=== PATIENT | female | born 1985 | race Caucasian/White ===

== ENCOUNTER 2017-03-14 10:38 | Day surgery (SDC) | payer SELFPAY, BC ==
[~2017-03-14 10:38] MED LIST: Bupivacaine 0.25% 10 ML SDV INJECT ONE; Lactated Ringers 1,000 ML IV SCH
--- NOTE | 2017-03-14 11:32 | PCM.PREANE ---
Preanesthetic Assessment - Anesthesia/Transfusion/Family Hx Anesthesia History: Prior Anesthesia Without Reaction Family History of Anesthesia Reaction: No Transfusion History: No Prior Transfusion(s) - Review of Systems General: No Symptoms Pulmonary: No Symptoms Cardiovascular: No Symptoms Gastrointestinal: No Symptoms Neurological: No Symptoms Other: Reports: None - Physical Assessment NPO Status Date: 03/13/17 Height: 1.55 m Weight: 68.039 kg ASA Class: 2 Mental Status: Alert & Oriented x3 Airway Class: Mallampati = 2 Dentition: Reports: Normal Dentition ROM/Head Extension: Full Lungs: Clear to Auscultation, Normal Respiratory Effort Cardiovascular: Regular Rate, Regular Rhythm - Allergies Allergies/Adverse Reactions: Allergies Allergy/AdvReac Type Severity Reaction Status Date / Time clindamycin Allergy Rash Verified 07/28/15 01:52 Penicillins Allergy Rash Verified 07/28/15 01:53 Sulfa (Sulfonamide Allergy Rash Verified 07/28/15 01:52 Antibiotics) - Acknowledgements Anesthesia Type Planned: General Anesthesia Pt an Appropriate Candidate for the Planned Anesthesia: Yes Alternatives and Risks of Anesthesia Discussed w Pt/Guardian: Yes Pt/Guardian Understands and Agrees with Anesthesia Plan: Yes PreAnesthesia Questionnaire Respiratory History: Reports: Asthma Genitourinary History: Reports: None [employer]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: Neurological History: Reports: Migraines Psychiatric History: Reports: Anxiety, Depression - Past Surgical History Head Surgeries/Procedures: Reports: None Female Surgical History: Reports: Tubal Ligation Musculoskeletal Surgical History: Reports: Other (See Below) Other Musculoskeletal Surgeries/Procedures:: metatarsal osteotomy of 1st metatarsal rt foot - SUBSTANCE USE Smoking Status *Q: Never Smoker Tobacco Use Within Last Twelve Months: No Second Hand Smoke Exposure: No Recreational Drug Use History: No - HOME MEDS Home Medications: Home Meds Albuterol Sulfate [Proair Hfa] 2 puff INH ASDIRECTED PRN 03/09/17 [History] Citalopram Hydrobromide [Celexa] 40 mg PO DAILY 03/09/17 [History] Rizatriptan Benzoate [Rizatriptan] 10 mg PO ASDIRECTED PRN 03/09/17 [History] cloNIDine HCl [Clonidine HCl ER] 0.1 mg PO BEDTIME 03/09/17 [History] - CURRENT (IN HOUSE) MEDS Current Meds: Current Medications Hydrocodone Bitart/Acetaminophen ([place] 325-5 Mg) 1 tab PO Q4H PRN PRN Reason: Pain Lactated Ringer's (Ringers, Lactated) 1,000 mls @ 125 mls/hr IV ASDIRECTED ELAINE Vancomycin HCl 0.75 gm/ Sodium (Chloride) 250 mls @ 166 mls/hr IV ONETIME ONE Stop: 03/14/17 12:30 Discontinued Medications Bupivacaine HCl (Sensorcaine-Mpf 0.25%) 20 ml INJECT ONETIME ONE Stop: 03/14/17 09:01
[2017-03-14] MEDS ORDERED: Succinylcholine/Normal Saline 200 MG/10 ML Syringe ONE (11:41)
[2017-03-14] MEDS ORDERED: Midazolam 1 MG/ML 2 ML SDV ONE (11:41)
[2017-03-14] MEDS ORDERED: Ondansetron 4 MG/2 ML SDV ONE (11:41)
[2017-03-14] MEDS ORDERED: Propofol 200 MG/20 ML SDV ONE (11:41)
[2017-03-14] MEDS ORDERED: diphenhydrAMINE 50 MG/ML SDV ONE (11:41)
[2017-03-14] MEDS ORDERED: Dexamethasone 4 MG/ML 5 ML MDV ONE (11:41)
[2017-03-14] MEDS ORDERED: Rocuronium 10 MG/ML 10 ML Syringe ONE (11:41)
[2017-03-14] MEDS ORDERED: HYDROmorphone 2 MG/ML Syringe ONE (11:41)
[2017-03-14] MEDS ORDERED: fentaNYL 250 MCG/5 ML SDV ONE (11:42)
[2017-03-14] MEDS ORDERED: Bupivacaine 0.25% 10 ML SDV ONE ×2 (12:48→14:38)
[2017-03-14] MEDS ORDERED: Mineral Oil/Petrolatum Ophth Oint 3.5 GM Tube ONE (12:57)
[2017-03-14] MEDS ORDERED: ePHEDrine 50 MG/ML SDV ONE (14:32)
[2017-03-14] MEDS ORDERED: Meperidine PF 25 MG/ML Syringe ONE (15:46)
[2017-03-14] MEDS ORDERED: Meperidine PF 25 MG/ML Syringe IVPUSH ONE (15:48)
[2017-03-14] MEDS ORDERED: fentaNYL 100 MCG/2 ML SDV IVPUSH PRN (15:49)
--- NOTE | 2017-03-14 15:50 | PCM.POSTAN ---
POST ANESTHESIA ASSESSMENT - MENTAL STATUS Mental Status: Alert, Oriented - RESPIRATORY Respiratory Status: Respiratory Rate WNL, Airway Patent, O2 Saturation Stable - CARDIOVASCULAR CV Status: Pulse Rate WNL, Blood Pressure Stable - GASTROINTESTINAL GI Status: No Symptoms - PAIN Pain Score: 2 - POST OP HYDRATION Hydration Status: Adequate & Stable
[2017-03-14 16:57] VITALS: BP 127/78
--- NOTE | 2017-03-14 17:17 | PCM48HPAN ---
Post Anesthesia Note - EVALUATION WITHIN 48HRS OF ANESTHETIC Vital Signs in Normal Range: Yes Patient Participated in Evaluation: Yes Respiratory Function Stable: Yes Airway Patent: Yes Cardiovascular Function Stable: Yes Hydration Status Stable: Yes Pain Control Satisfactory: Yes Nausea and Vomiting Control Satisfactory: Yes Mental Status Recovered: Yes
--- NOTE | 2017-03-14 21:23 | PCM.OPNOTE ---
- General Post-Op/Procedure Note Date of Surgery/Procedure: 03/14/17 Operative Procedure(s): bilateral breast lift (mastopexy) Pre Op Diagnosis: cosmetic Post-Op Diagnosis: Same Anesthesia Technique: General ET Tube, Local Primary Surgeon: Karen Dalton Roll Filler: Marina Estevez Role of Roll Filler: retraction and closure assistance Complications: None Condition: Good Free Text/Narrative:: Intake & Output 03/14/17 03/14/17 03/14/17 07:59 15:59 23:59 Intake Total 2100 Balance 2100
[2017-03-16] MEDS ORDERED: Acetaminophen/HYDROcodone 325-5 MG Tab PO PRN (09:00)
--- NOTE | 2017-03-19 15:29 | OR ---
SURGEON: ELMIRA CARROLL MD DATE OF PROCEDURE: 03/14/2017 PREOPERATIVE DIAGNOSIS: Cosmetic. POSTOPERATIVE DIAGNOSIS: Cosmetic. PROCEDURE: Bilateral mastopexy/breast lift. FOREST FIRE LOOKOUT: WINSTON Mayorga. Role of personal assistant is retraction and closure assistance. ANESTHESIA: General ET tube with local. INDICATIONS: Ms. Hair is a 31-year-old female seen today in evaluation for bilateral breast lift. Risks and benefits of cosmetic surgery were discussed with her and she was in agreement to proceed. Risks were including, but not limited to, bleeding, infection, damage to underlying or overlying structures, possible need for future interventions, possible scarring. PROCEDURE IN DETAIL: After informed consent was obtained and placed on the chart, the patient was brought to the operating theater and laid in supine position. After adequate local MAC anesthetic was obtained, the area was prepped and draped, and a time- out was completed to confirm side and site. Once adequately confirmed, attention was then paid to infiltration of local anesthesia and marking for the breast lift. Once markings were adequately confirmed, they were stapled and tacked in place. The patient was sat up in the supine position to ensure appropriate symmetry and positioning. Once adequately confirmed, the patient was laid back down and the superomedial pedicle was de- epithelialized, taking care to protect the nipple-areolar complex and the remaining skin intervening tissue was removed. Slightly more was removed on the right than on the left to improve the patient's symmetry. The nipple-areolar complex was tacked into its new position using sammi and the lower skin incision closed appropriately. The patient was then sat up and again symmetry was appreciated with a small T-incision on the bottom of each breast. Once this was completed, the patient was laid back down into the supine position and the skin was closed with deep 3-0 Stratafix suture and a running 4- 0 subcuticular for the skin. The patient tolerated this well. The wounds were dressed with Steri-Strips, fluffs, and a Kerlix gauze dressing and a compression bra. FOLLOWUP INSTRUCTIONS: The patient will see us tomorrow in clinic, sooner if any problems, questions, or concerns. She was given a prescription for pain control. HEGGTLISSETH / KEN /[id number]
== END 2017-03-14 16:55 | disposition home or self-care (01) ==
LOC: MW.SDS 10:38
PROVIDERS: ATTEND Plastic Surgery
DX: Z41.1 Encounter for cosmetic surgery (principal); F41.9 Anxiety disorder, unspecified; Z88.0 Allergy status to penicillin; Z88.1 Allergy status to other antibiotic agents; Z88.2 Allergy status to sulfonamides; Z79.899 Other long term (current) drug therapy; Z98.51 Tubal ligation status; Z78.9 Other specified health status
CPT/HCPCS: 19316; 81025; J1100; J1170; J1200; J2175; J2250; J2405; J3010; 00402; J2704

== ENCOUNTER 2017-12-21 11:30 | Emergency (ER) | payer BC ==
--- NOTE | 2017-12-21 12:08 | CR ---
EXAMINATION: Right ankle HISTORY: Pain COMPARISON: None TECHNIQUE: 3 views FINDINGS/IMPRESSION: There is a small minimally displaced avulsion fracture at the tip of the distal fibula with prominent overlying soft tissue swelling. The remaining osseous structures and joint spac es appear preserved. Bone mineralization is otherwise normal.
[2017-12-21 12:23] VITALS: BP 130/83
--- NOTE | 2017-12-21 12:29 | EDM.PDOC ---
ED HPI GENERAL MEDICAL PROBLEM - General Chief Complaint: Lower Extremity Injury/Pain Stated Complaint: RT ANKLE HURTS Time Seen by Provider: 12/21/17 11:33 Source of Information: Reports: Patient History Limitations: Reports: No Limitations - History of Present Illness INITIAL COMMENTS - FREE TEXT/NARRATIVE: HISTORY AND PHYSICAL: History of present illness: Patient was stepping off a gym machine when she heard a pop to her right ankle. Immediately had some soft tissue swelling and pain which is increased with weightbearing. She denies any fever, chills, chest pain, shortness of breath or cough. Denies any GI or symptoms. She did have a previous bunion surgery to the affected extremity. Review of systems: As per history of present illness and below otherwise all systems reviewed and negative. Past medical history: As per history of present illness and as reviewed below otherwise noncontributory. Surgical history: As per history of present illness and as reviewed below otherwise noncontributory. Social history: No reported history of drug or alcohol abuse. Family history: As per history of present illness and as reviewed below otherwise noncontributory. Physical exam: General: Developed and well-nourished 32-year-old female. Alert and oriented. Nontoxic appearing and in no acute distress. HEENT: Atraumatic, normocephalic, pupils equal and reactive bilaterally, negative for conjunctival pallor or scleral icterus, mucous membranes moist, throat clear, neck supple, nontender, trachea midline. No drooling or trismus noted. No meningeal signs Lungs: Clear to auscultation, breath sounds equal bilaterally, chest nontender. Heart: S1S2, regular rate and rhythm without overt murmur Abdomen: Soft, nondistended, nontender. Negative for masses or hepatosplenomegaly. Negative for costovertebral tenderness. Pelvis: Stable nontender. Genitourinary: Deferred. Rectal: Deferred. Skin: Soft tissue swelling noted to the right lateral malleolus. Otherwise skin is I\ntact, warm, dry. No lesions or rashes noted. Extremities: Moves all per self, does have pain with palpation over the lateral malleolus, right. Soft tissue swelling noted. She is negative for cords or calf pain. Neurovascular unremarkable. Neuro: Awake, alert, oriented. Cranial nerves II through XII unremarkable. Cerebellum unremarkable. Motor and sensory unremarkable throughout. Exam nonfocal. Notes: X-ray shows a small minimally displaced avulsion fracture at the tip of the distal fibula with prominent overlying soft tissue swelling. This information was shared with the patient. Dr Madden was consulted on this case, will follow up with patient as outpatient next week and is agreeable to plan of care. Half cast fiberglass splint was applied by nursing staff. Crutches education completed. We discussed appropriate follow-up care. She voices understanding and is agreeable to plan of care. Denies any further questions or concerns at this time. Diagnostics: Xray right ankle Therapeutics: 1/ cast fiberglass splint with crutches Prescription: Tramadol #15 Impression: Distal Fibula Fracture, Right Plan: 1. Rest, ice, elevate the affected extremity. Wear the splint and use crutches as directed. 2. Tylenol and/or ibuprofen as needed for pain management. Tramadol for moderate to severe pain. This medication may cause drowsiness so do not take while driving or needing to be functioning outside of the house. 3. Please follow-up with the orthopedic provider next week. Return to the ED as needed as discussed. Definitive disposition and diagnosis as appropriate pending reevaluation and review of above. Onset: Today Duration: Hour(s): Location: Reports: Lower Extremity, Right Right Ankle Pain Score (Numeric/FACES): 10 - Related Data Allergies Allergy/AdvReac Type Severity Reaction Status Date / Time clindamycin Allergy Rash Verified 12/21/17 12:23 Penicillins Allergy Rash Verified 12/21/17 12:23 Sulfa (Sulfonamide Allergy Rash Verified 12/21/17 12:23 Antibiotics) Home Meds: Home Meds Albuterol Sulfate [Proair Hfa] 2 puff INH ASDIRECTED PRN 03/09/17 [History] Citalopram Hydrobromide [Celexa] 40 mg PO DAILY 03/09/17 [History] traMADol [Ultram] 50 mg PO Q4H PRN #15 tab 12/21/17 [Rx] Past Medical History Respiratory History: Reports: Asthma Genitourinary History: Reports: None [employer] History: Reports: Neurological History: Reports: Migraines Psychiatric History: Reports: Anxiety - Past Surgical History Other Musculoskeletal Surgeries/Procedures:: foot surgery Review of Systems - Review of Systems Review Of Systems: ROS reveals no pertinent complaints other than HPI. ED EXAM, GENERAL - Physical Exam Exam: See Below (See dictation) Course - Vital Signs Last Recorded V/S: Last Vital Signs Temp 98.3 F 12/21/17 12:19 Pulse 86 12/21/17 12:19 Resp 16 12/21/17 12:19 BP 130/83 12/21/17 12:19 Pulse Ox 98 12/21/17 12:19 - Orders/Labs/Meds Orders: Active Orders 24 hr Category Date Time Status DME for Discharge [COMM] Stat Oth 12/21/17 12:31 Ordered Departure - Departure Time of Disposition: 12:29 Disposition: Home, Self-Care 01 Clinical Impression: Fibula fracture Qualifiers: Encounter type: initial encounter Fibula location: distal Fracture type: closed Fracture morphology: other fracture Laterality: right Qualified Code(s): S82.831A - Other fracture of upper and lower end of right fibula, initial encounter for closed fracture - Discharge Information Prescriptions: traMADol [Ultram] 50 mg PO Q4H PRN #15 tab PRN Reason: Pain Referrals: PCP,None [Primary Care Provider] - Forms: ED Department Discharge Additional Instructions: The following information is given to patients seen in the emergency department who are being discharged to home. This information is to outline your options for follow-up care. We provide all patients seen in our emergency department with a follow-up referral. The need for follow-up, as well as the timing and circumstances, are variable depending upon the specifics of your emergency department visit. If you don't have a primary care physician on staff, we will provide you with a referral. We always advise you to contact your personal physician following an emergency department visit to inform them of the circumstance of the visit and for follow-up with them and/or the need for any referrals to a consulting specialist. The emergency department will also refer you to a specialist when appropriate. This referral assures that you have the opportunity for follow-up care with a specialist. All of these measure are taken in an effort to provide you with optimal care, which includes your follow-up. Under all circumstances we always encourage you to contact your private physician who remains a resource for coordinating your care. When calling for follow-up care, please make the office aware that this follow-up is from your recent emergency room visit. If for any reason you are refused follow-up, please contact the [facility] Emergency Department at and asked to speak to the emergency department charge nurse. [facility] [address], [address] [place] [address] 1. Rest, ice, elevate the affected extremity. Wear the splint and use crutches as directed. 2. Tylenol and/or ibuprofen as needed for pain management. Tramadol for moderate to severe pain. This medication may cause drowsiness so do not take while driving or needing to be functioning outside of the house. 3. Please follow-up with the orthopedic provider next week. Return to the ED as needed as discussed. - My Orders Last 24 Hours: My Active Orders 12/21/17 12:31 DME for Discharge [COMM] Stat - Assessment/Plan Last 24 Hours: My Active Orders 12/21/17 12:31 DME for Discharge [COMM] Stat
== END 2017-12-21 13:00 | disposition home or self-care (01) ==
LOC: MW.ED 11:30
DX: S82.831A Other fracture of upper and lower end of right fibula, initial encounter for closed fracture (principal); F41.9 Anxiety disorder, unspecified; Z88.1 Allergy status to other antibiotic agents; Z88.0 Allergy status to penicillin; Z88.2 Allergy status to sulfonamides; Z79.899 Other long term (current) drug therapy; W31.89XA Contact with other specified machinery, initial encounter
CPT/HCPCS: 73610-26-RT; 73610-RT; 99283

== ENCOUNTER 2021-06-02 07:51 | Day surgery (SDC) | payer BC ==
[~2021-06-02 07:51] MED LIST changes: -Bupivacaine 0.25% 10 ML SDV INJECT ONE; +Scopolamine 1.5 MG Transdermal Patch ONE; +Sodium Chloride 0.9% 10 ML Syringe FLUSH PRN; +Sodium Chloride 0.9% 2.5 ML Syringe FLUSH PRN; +Sodium Chloride 0.9% 20 ML SDV IV PRN; +ceFAZolin 2 GM in Premix Bag 1 BAG IV ONE
[2021-06-02] MEDS ORDERED: fentaNYL 100 MCG/2 ML SDV IVPUSH PRN (08:12)
[2021-06-02] MEDS ORDERED: HYDROmorphone 1 MG/ML Syringe IVPUSH PRN (08:12)
[2021-06-02] MEDS ORDERED: Naloxone 0.4 MG/ML SDV IVPUSH PRN (08:12)
[2021-06-02] MEDS ORDERED: Metoclopramide 10 MG/2 ML SDV IVPUSH PRN (08:12)
[2021-06-02] MEDS ORDERED: Albuterol 0.083% 2.5 MG/3 ML Neb Soln NEB PRN (08:12)
[2021-06-02] MEDS ORDERED: Ondansetron 4 MG/2 ML SDV IVPUSH PRN (08:12)
[2021-06-02] MEDS ORDERED: Bupivacaine 0.5% 10 ML SDV ONE (09:23)
[2021-06-02] MEDS ORDERED: Octyl 2-Cyanoacrylate 1 Tube ONE (09:24)
[2021-06-02] MEDS ORDERED: Famotidine 20 MG/2 ML SDV ONE (09:37)
[2021-06-02] MEDS ORDERED: Ketorolac 30 MG/ML SDV ONE ×2 (10:09→11:54)
[2021-06-02] MEDS ORDERED: fentaNYL 100 MCG/2 ML SDV ONE ×3 (10:22→10:45)
[2021-06-02] MEDS ORDERED: Meperidine PF 25 MG/ML SDV IVPUSH ONE (11:43)
[2021-06-02] MEDS ORDERED: Glycopyrrolate 0.2 MG/ML SDV ONE (11:54)
[2021-06-02] MEDS ORDERED: Ondansetron 4 MG/2 ML SDV ONE (11:54)
[2021-06-02] MEDS ORDERED: Rocuronium Bromide 50 MG/5 ML Syringe ONE (11:54)
[2021-06-02] MEDS ORDERED: Dexamethasone 4 MG/ML 5 ML MDV ONE (11:54)
[2021-06-02] MEDS ORDERED: Sugammadex Sodium 200 MG/2 ML VIAL ONE (11:54)
[2021-06-02] MEDS ORDERED: Propofol 200 MG/20 ML SDV ONE (11:56)
[2021-06-02] MEDS ORDERED: fentaNYL 250 MCG/5 ML SDV ONE (11:56)
[2021-06-02 12:51] VITALS: BP 126/68; PULSE 80
== END 2021-06-02 14:00 | disposition home or self-care (01) ==
LOC: MW.SDS 07:51
PROVIDERS: ATTEND Surgery
DX: K81.1 Chronic cholecystitis (principal); K82.8 Other specified diseases of gallbladder; F41.9 Anxiety disorder, unspecified; G43.009 Migraine without aura, not intractable, without status migrainosus; G47.00 Insomnia, unspecified; E66.9 Obesity, unspecified; Z88.0 Allergy status to penicillin; Z88.2 Allergy status to sulfonamides; Z79.899 Other long term (current) drug therapy; Z98.890 Other specified postprocedural states
CPT/HCPCS: 47562; 81025; A9270; J0131; J0690; J1100; J1170; J1885; J2175; J2405; J2704; J3010; J3490; J7120; 00790

== ENCOUNTER 2021-09-28 14:41 | Emergency (ER) | payer BC ==
[2021-09-28 15:34] VITALS: BP 134/72; PULSE 89
== END 2021-09-28 18:03 | disposition home or self-care (01) ==
LOC: MW.ED 14:41
DX: S90.32XA Contusion of left foot, initial encounter (principal); E66.9 Obesity, unspecified; Z88.1 Allergy status to other antibiotic agents; Z88.0 Allergy status to penicillin; Z68.32 Body mass index [BMI] 32.0-32.9, adult; Z88.2 Allergy status to sulfonamides; W55.22XA Struck by cow, initial encounter
CPT/HCPCS: 73630-26-LT; 73630-LT; 99282; 99283-25

== ENCOUNTER → 2022-03-27 | Day surgery (SDC) | payer BC ==
[~2022-03-27] MED LIST changes: +Albuterol 0.083% 2.5 MG/3 ML Neb Soln NEB PRN; +Bupivacaine 0.25% 10 ML SDV ONE; +Dexmedetomidine 200 MCG/2 ML SDV ONE; +HYDROmorphone 1 MG/ML Syringe IVPUSH PRN; +Ketorolac 30 MG/ML SDV ONE; +Lidocaine 1% with EPINEPHrine 1:100,000 10 ML MDV ONE; +Lidocaine 2% 5 ML SDV ONE; +Metoclopramide 10 MG/2 ML SDV IVPUSH PRN; +Morphine 2 MG/ML SYRINGE IVPUSH PRN; +Naloxone 0.4 MG/ML SDV IVPUSH PRN; +Ondansetron 4 MG/2 ML SDV IVPUSH PRN; +Ondansetron 4 MG/2 ML SDV ONE; +Propofol 200 MG/20 ML SDV ONE; -Scopolamine 1.5 MG Transdermal Patch ONE; +Water For Injection, Sterile 20 ML ONE; +ceFAZolin 1 GM Vial ONE; -ceFAZolin 2 GM in Premix Bag 1 BAG IV ONE; +fentaNYL 100 MCG/2 ML SDV ONE; +fentaNYL 50 MCG/ML SDV IVPUSH PRN
[2022-03-27 10:40] VITALS: BP 107/73; PULSE 72
== END | disposition home or self-care (01) ==
LOC: MW.SDS 06:35
PROVIDERS: ATTEND Obstetrics & Gynecology
DX: N39.3 Stress incontinence (female) (male) (principal); F41.9 Anxiety disorder, unspecified; J45.909 Unspecified asthma, uncomplicated; E66.9 Obesity, unspecified; G43.909 Migraine, unspecified, not intractable, without status migrainosus; Z79.899 Other long term (current) drug therapy; Z98.890 Other specified postprocedural states; Z90.49 Acquired absence of other specified parts of digestive tract; Z88.2 Allergy status to sulfonamides; Z88.0 Allergy status to penicillin; Z88.1 Allergy status to other antibiotic agents
CPT/HCPCS: 57288; C1771; J0690; J1885; J2405; J2704; J3010; J3490; J7120; 00860